=== PATIENT | male | born 1985 | race Caucasian/White ===

== ENCOUNTER 2017-08-04 23:31 | Emergency (ER) | payer SELFPAY ==
[~2017-08-04] VITALS: Ht 180.3 cm; Wt 91.0 kg
[~2017-08-04 23:31] MED LIST: BUPR150T3; QUET400T
[2017-08-05] MEDS ORDERED: TETANUS, DIPHTHERIA, PERTUSSIS VAC/PF 0.5ML (>7YR OLD) IM ONE (02:00)
[2017-08-05 04:02] VITALS: BP 108/65
== END 2017-08-05 05:26 | disposition home or self-care (01) ==
LOC: ER 23:31
DX: S09.8XXA Other specified injuries of head, initial encounter (principal); S40.811A Abrasion of right upper arm, initial encounter; S30.811A Abrasion of abdominal wall, initial encounter; S80.212A Abrasion, left knee, initial encounter; F10.129 Alcohol abuse with intoxication, unspecified; Y90.9 Presence of alcohol in blood, level not specified; Y04.0XXA Assault by unarmed brawl or fight, initial encounter; W54.0XXA Bitten by dog, initial encounter; Y93.89 Activity, other specified; Y92.098 Other place in other non-institutional residence as the place of occurrence of the external cause
CPT/HCPCS: 70450; 70486; 72125; 82962; 90471; 90715; 99284